=== PATIENT | male | born 1945 | race Caucasian/White ===

== ENCOUNTER 2016-07-18 05:21 | Inpatient (IN) | payer BC, OTHER ==
[~2016-07-18] VITALS: Ht 177.8 cm; Wt 121.6 kg
[~2016-07-18 05:21] MED LIST: ALEVE220 MG PO; ALLERGY RELIE15.8 ML BOTH NARES; ASPIR 8181 M1 PO; DALMANE15 MG PO; DIOVAN160 MG PO; DULCOLAX5 MG PO; FLOMAX0.4 MG PO; GLUCOPHAGE500 MG PO; INVOKANA300 MG PO; K-DUR20 MEQ PO; LASIX40 MG PO; LOPRESSOR100 M1 PO; METOLAZONE5 MG PO; MEVACOR10 M1 PO; NORVASC5 MG PO; TRICOR145 MG PO; VICTOZA 2-0.6 MG/0.1 SC
[2016-07-18 06:12] VITALS: BP 162/93
[2016-07-18 06:45] LABS: POINT-OF-CARE METER ID UU14174212
[2016-07-18 10:00] LABS: POINT-OF-CARE METER ID UU13113675
[2016-07-18 12:00] VITALS: BP 130/58
[2016-07-18 15:05] VITALS: BP 123/64
[2016-07-18 16:38] LABS: POINT-OF-CARE METER ID UU14149397
[2016-07-18 19:44] VITALS: BP 114/59
[2016-07-18 23:21] VITALS: BP 107/68
[2016-07-19 03:41] VITALS: BP 113/59
[2016-07-19 05:11] LABS: HEMATOCRIT 55.5 % (38.0-50.0)
[2016-07-19 05:22] LABS: CHLORIDE 103 mEq/L (99-109)
[2016-07-19 05:23] LABS: POTASSIUM 4.8 mEq/L (3.7-5.4); SODIUM 140 mEq/L (136-147)
[2016-07-19 05:24] LABS: GLUCOSE 143 mg/dL (70-99)
[2016-07-19 05:26] LABS: ANION GAP 9 MEQ/L (2-14)
[2016-07-19 05:28] LABS: GFR ESTIMATE (CALCULATED) > 59 mL/min/
[2016-07-19 05:29] LABS: UREA NITROGEN (BUN) 24 mg/dL (9-23)
[2016-07-19 07:45] LABS: GLUCOSE 153 mg/dL (70-99)
[2016-07-19 07:56] VITALS: BP 126/68
[2016-07-19 11:56] VITALS: BP 118/67
[2016-07-19 12:00] LABS: POINT-OF-CARE METER ID UU14149397
[2016-07-19 15:24] VITALS: BP 101/55
[2016-07-19 16:54] LABS: POINT-OF-CARE METER ID UU14149397
[2016-07-19 19:43] VITALS: BP 98/55
[2016-07-19 23:55] VITALS: BP 130/74
[2016-07-20 04:06] VITALS: BP 98/54
[2016-07-20 05:35] LABS: MCV 92.7 FL (86-99)
[2016-07-20 07:48] VITALS: BP 138/74
[2016-07-20 17:18] VITALS: BP 125/70
[2016-07-20 21:52] LABS: POINT-OF-CARE METER ID UU14188577
[2016-07-20 23:23] VITALS: BP 118/61
[2016-07-21 08:00] VITALS: BP 102/68
[2016-07-21 17:02] VITALS: BP 108/58
[2016-07-21] MEDS ORDERED: HYDROCODON-ACE1 EAC7 PO (17:32)
[2016-07-21] MEDS ORDERED: XARELTO10 MG PO (17:33)
[2016-07-22 00:32] VITALS: BP 94/59
[2016-07-22 08:18] VITALS: BP 108/62
[2016-07-22 15:54] VITALS: BP 99/60
[2016-07-22 20:40] VITALS: BP 91/54
[2016-07-22 23:28] VITALS: BP 104/56
[2016-07-23 08:19] VITALS: BP 104/61
[2016-07-23 11:43] LABS: POINT-OF-CARE METER ID UU14188577
[2016-07-23 16:16] VITALS: BP 102/67
[2016-07-23 16:53] LABS: POINT-OF-CARE METER ID UU14188577
[2016-07-23 21:45] VITALS: BP 106/69
[2016-07-23 23:47] VITALS: BP 94/56
[2016-07-24 06:38] LABS: POINT-OF-CARE METER ID UU14149397
[2016-07-24 07:57] VITALS: BP 104/58
[2016-07-24 16:30] VITALS: BP 117/59
[2016-07-24 16:52] LABS: POINT-OF-CARE METER ID UU14149397
[2016-07-24 21:24] LABS: BASE EXCESS 13.2 mEq/L (-3 to +3); CARBOXY HGB 1.8 % (0-5); COMMENTS - BLOOD GASES A+C+; FI02 21 %; METHEMOGLOBIN 1.1 % (0-1.5); PCO2 55 mm Hg (35-45); PO2 50 mm Hg (80-100); SITE RR; pH 7.47 (7.35-7.45)
[2016-07-24 21:52] VITALS: BP 104/60
[2016-07-24 23:22] VITALS: BP 128/58
[2016-07-25 08:21] VITALS: BP 100/61
[2016-07-25 12:05] LABS: POINT-OF-CARE METER ID UU14149397
== END 2016-07-25 13:42 | disposition home health service (06) | DRG 470 ==
LOC: 3EAST 05:21 → 2SOUTH 05:21 → 3EAST 11:50 → 2SOUTH 12:37 → 3EAST 07-25 13:42
PROVIDERS: Internal Medicine Pulmonary Disease; Orthopaedic Surgery
PROC: 0SRB0JZ Replacement of Left Hip Joint with Synthetic Substitute, Open Approach (ICD-10-PCS; principal; 2016-07-18)
DX: M16.12 Unilateral primary osteoarthritis, left hip (principal); I25.10 Atherosclerotic heart disease of native coronary artery without angina pectoris; I25.2 Old myocardial infarction; I10 Essential (primary) hypertension; R09.02 Hypoxemia; D75.1 Secondary polycythemia; G47.33 Obstructive sleep apnea (adult) (pediatric); E87.3 Alkalosis; E11.65 Type 2 diabetes mellitus with hyperglycemia; Z79.84 Long term (current) use of oral hypoglycemic drugs
CPT/HCPCS: 36600; 71010; 71275; 73501; 80048; 82803; 82948; 84999; 85014; 85018; 94760; 94799; 97530 GO; 97530 GP; J0131; J0330; J0690; J1170; J1815; J2250; J2405; J2710; J2765; J3010; J7030; J7050; P9045

== ENCOUNTER 2017-10-31 11:18 | Inpatient (IN) | payer BC, OTHER ==
[~2017-10-31] VITALS: Ht 170.2 cm; Wt 110.7 kg
[~2017-10-31 11:18] MED LIST changes: +GLUCOPHAGE XR,500 MG PO; -GLUCOPHAGE500 MG PO; +HYDROCODON-ACE1 EAC7 PO; +XARELTO10 MG PO
[2017-10-31 11:41] LABS: HEMATOCRIT 55.7 % (38.0-50.0); HEMOGLOBIN 17.1 G/DL (12.5-16.6); MCH 27.2 PG (29.0-34.0); MCHC 30.7 G/DL (30.0-36.0); MCV 88.6 FL (86-99); PLATELET COUNT 114 K/uL (156-360); RBC DIS.WIDTH-SD 55.8 % (39-53); RED BLOOD COUNT 6.29 M/uL (4.00-5.50)
[2017-10-31 11:50] LABS: CHLORIDE 104 mEq/L (99-109); POTASSIUM 4.7 mEq/L (3.7-5.4); SODIUM 141 mEq/L (136-147)
[2017-10-31 11:52] LABS: GLUCOSE 245 mg/dL (70-99)
[2017-10-31 11:53] LABS: APPEARANCE CLOUDY ((CLEAR)); BILIRUBIN NEGATIVE; BLOOD NEGATIVE; COLOR YELLOW ((YELLOW)); GLUCOSE (STRIP) >=500; KETONES NEGATIVE; LEUKOCYTES NEGATIVE; NITRITE NEGATIVE; PROTEIN (STRIP) >=500; UROBILINOGEN 0.2 MG/DL (0.2-1.0)
[2017-10-31 11:55] LABS: CREATININE 0.9 mg/dL (0.6-1.3); GFR ESTIMATE (CALCULATED) > 59 mL/min/ (58.99-99999)
[2017-10-31 11:56] LABS: UREA NITROGEN (BUN) 19 mg/dL (9-23)
[2017-10-31 12:01] LABS: TROP-I INTERPRETATION NEGATIVE; TROPONIN-I 0.02 ng/mL (0.0-0.30)
[2017-10-31 12:10] LABS: RED BLOOD CELLS NONE SEEN /HPF (0-5); WHITE BLOOD CELLS RARE /HPF (0-5)
[2017-10-31 12:13] LABS: BACTERIA 1+ /HPF; EPITHELIAL CELLS NONE SEEN /HPF; MUCUS NONE SEEN /LPF; UCUL ADDED? NO
[2017-10-31 12:14] LABS: AMORPHOUS URATES CRYSTALS 1+
[2017-10-31 14:46] VITALS: BP 137/69
[2017-10-31] MEDS ORDERED: COZAAR50 MG PO (15:45)
[2017-10-31] MEDS ORDERED: ASPIR 8181 M1 PO (15:45)
[2017-10-31 18:58] LABS: TROP-I INTERPRETATION NEGATIVE; TROPONIN-I 0.27 ng/mL (0.0-0.30)
[2017-10-31 19:50] VITALS: BP 138/72
[2017-10-31 23:04] VITALS: BP 138/71
[2017-11-01 01:16] LABS: TROP-I INTERPRETATION NEGATIVE
[2017-11-01 04:00] VITALS: BP 148/68
[2017-11-01 06:18] LABS: ALBUMIN 3.7 G/DL (3.2-4.8); ALKALINE PHOSPHATASE 28 IU/L (3-129); ALT (GPT) 11 IU/L (3-49); AST (GOT) 24 IU/L (2-34); CHLORIDE 98 MEQ/L (99-109); CREATININE 0.9 MG/DL (0.6-1.3); GFR ESTIMATE (CALCULATED) > 59 mL/min/ (58.99-99999); GLUCOSE 129 mg/dL (70-99); HEMATOCRIT 51.6 % (38.0-50.0); HEMOGLOBIN 15.4 G/DL (12.5-16.6); MCHC 29.8 G/DL (30.0-36.0); MCV 90.4 FL (86-99); POTASSIUM 4.8 MEQ/L (3.7-5.4); RBC DIS.WIDTH-CV 17.2 % (11.8-14.6); RED BLOOD COUNT 5.71 M/uL (4.00-5.50); SODIUM 140 MEQ/L (136-147); TOTAL BILIRUBIN 0.7 MG/DL (0.0-1.0); TOTAL PROTEIN 6.5 G/DL (6.4-8.3); UREA NITROGEN (BUN) 21 mg/dL (9-23); WHITE BLOOD COUNT 6.6 K/uL (4.1-10.2)
[2017-11-01 07:19] LABS: PLAT.SUFFICIENCY DECREASED; PLATELET COUNT 128 K/uL (156-360)
[2017-11-01 07:46] VITALS: BP 118/56
[2017-11-01 11:19] VITALS: BP 119/71
[2017-11-01] MEDS ORDERED: TOPROL XL100 MG PO (12:45)
[2017-11-01] MEDS ORDERED: ASPIRIN81 M2 PO (12:47)
[2017-11-01] MEDS ORDERED: GLIPIZIDE XL5 MG PO (12:48)
[2017-11-01 15:41] VITALS: BP 116/61
[2017-11-01 19:30] VITALS: BP 153/80
[2017-11-02] VITALS (14 sets, daily range): BP systolic 94–121; BP diastolic 48–69
[2017-11-02 05:39] LABS: BASOPHIL (%) 0.4 % (0-1); EOSINOPHIL (%) 1.6 % (0-5); EOSINOPHIL COUNT 0.1 K/uL (0-0.3); HEMATOCRIT 52.8 % (38.0-50.0); HEMOGLOBIN 15.6 G/DL (12.5-16.6); IMMATURE GRANULOCYTE (%) 0.2 % (0.0-0.7); LYMPHOCYTE (%) 15.9 % (15-42); LYMPHOCYTE COUNT 0.9 K/uL (1.0-2.8); MCH 26.9 PG (29.0-34.0); MCHC 29.5 G/DL (30.0-36.0); MCV 91.2 FL (86-99); MONOCYTE (%) 9.2 % (3-12); MONOCYTE COUNT 0.5 K/uL (0-0.8); NEUTROPHIL (%) 72.7 % (45-76); NEUTROPHIL COUNT 4.1 K/uL (1.8-6.4); PLATELET COUNT 115 K/uL (156-360); RBC DIS.WIDTH-CV 16.8 % (11.8-14.6); RBC DIS.WIDTH-SD 56.3 % (39-53); RED BLOOD COUNT 5.79 M/uL (4.00-5.50); WHITE BLOOD COUNT 5.7 K/uL (4.1-10.2)
[2017-11-02 06:09] LABS: CREATININE 0.8 MG/DL (0.6-1.3); GFR ESTIMATE (CALCULATED) > 59 mL/min/ (58.99-99999); GLUCOSE 177 mg/dL (70-99); SODIUM 141 MEQ/L (136-147); UREA NITROGEN (BUN) 19 mg/dL (9-23)
[2017-11-02 06:28] LABS: CARBON DIOXIDE (BICARBONATE) > 40.0 MEQ/L (20-31); CHLORIDE 88 MEQ/L (99-109)
[2017-11-02 09:46] LABS: COMMENTS - BLOOD GASES A+C+; DEVICE HHFNC; FI02 80 %; O2 FLOW 30 L/MIN; SITE RR; TOTAL RESP RATE 16 resp/min
[2017-11-02 09:47] LABS: BICARBONATE 56.9 mEq/L (22-26); CARBOXY HGB 1.6 % (0-5); METHEMOGLOBIN 0.9 % (0-1.5); PCO2 121 mm Hg (35-45); PO2 151 mm Hg (80-100)
[2017-11-02 09:48] LABS: BASE EXCESS 21.7 mEq/L (-3 to +3)
[2017-11-02 09:53] LABS: pH 7.28 (7.35-7.45)
[2017-11-02 18:02] LABS: D-DIMER ELISA < 150.00 ng/mLDDU (<230)
[2017-11-03] VITALS (16 sets, daily range): BP systolic 90–129; BP diastolic 52–76
[2017-11-03 05:47] LABS: BASOPHIL (%) 0.2 % (0-1); EOSINOPHIL (%) 0.5 % (0-5); HEMATOCRIT 49.5 % (38.0-50.0); HEMOGLOBIN 14.4 G/DL (12.5-16.6); IMMATURE GRANULOCYTE (%) 0.2 % (0.0-0.7); LYMPHOCYTE (%) 16.8 % (15-42); MCH 27.2 PG (29.0-34.0); MCHC 29.1 G/DL (30.0-36.0); MCV 93.6 FL (86-99); MONOCYTE (%) 10.7 % (3-12); MONOCYTE COUNT 0.6 K/uL (0-0.8); NEUTROPHIL (%) 71.6 % (45-76); NEUTROPHIL COUNT 4.2 K/uL (1.8-6.4); PLATELET COUNT 106 K/uL (156-360); RBC DIS.WIDTH-CV 16.2 % (11.8-14.6); RBC DIS.WIDTH-SD 55.4 % (39-53); RED BLOOD COUNT 5.29 M/uL (4.00-5.50); WHITE BLOOD COUNT 5.9 K/uL (4.1-10.2)
[2017-11-03 06:19] LABS: CHLORIDE 90 MEQ/L (99-109); GFR ESTIMATE (CALCULATED) > 59 mL/min/ (58.99-99999); GLUCOSE 172 mg/dL (70-99); POTASSIUM 4.8 MEQ/L (3.7-5.4); SODIUM 140 MEQ/L (136-147)
[2017-11-03 06:29] LABS: UREA NITROGEN (BUN) 35 mg/dL (9-23)
[2017-11-03 07:01] LABS: CARBON DIOXIDE (BICARBONATE) > 40.0 MEQ/L (20-31)
[2017-11-03 10:53] LABS: COMMENTS - BLOOD GASES A+C+; DEVICE HHFNC; FI02 40 %; O2 FLOW 25 L/MIN; SITE RR; TOTAL RESP RATE 18 resp/min
[2017-11-03 10:54] LABS: PCO2 99 mm Hg (35-45); PO2 82 mm Hg (80-100); pH 7.35 (7.35-7.45)
[2017-11-03 10:55] LABS: BASE EXCESS 22.3 mEq/L (-3 to +3); BICARBONATE 54.7 mEq/L (22-26); CARBOXY HGB 1.9 % (0-5); METHEMOGLOBIN 0.8 % (0-1.5); O2 SATURATION (CALCULATED) 94.1 % (95-99)
[2017-11-04] VITALS (12 sets, daily range): BP systolic 117–147; BP diastolic 59–81
[2017-11-04 05:47] LABS: BASOPHIL (%) 0.2 % (0-1); EOSINOPHIL (%) 1.2 % (0-5); EOSINOPHIL COUNT 0.1 K/uL (0-0.3); HEMATOCRIT 47.4 % (38.0-50.0); HEMOGLOBIN 14.2 G/DL (12.5-16.6); IMMATURE GRANULOCYTE (%) 0.4 % (0.0-0.7); MCH 27.2 PG (29.0-34.0); MCV 90.8 FL (86-99); MONOCYTE (%) 11.7 % (3-12); MONOCYTE COUNT 0.6 K/uL (0-0.8); NEUTROPHIL (%) 67.5 % (45-76); NEUTROPHIL COUNT 3.5 K/uL (1.8-6.4); PLATELET COUNT 102 K/uL (156-360); RBC DIS.WIDTH-CV 16.1 % (11.8-14.6); RBC DIS.WIDTH-SD 53.6 % (39-53); RED BLOOD COUNT 5.22 M/uL (4.00-5.50); WHITE BLOOD COUNT 5.2 K/uL (4.1-10.2)
[2017-11-04 06:28] LABS: CHLORIDE 88 MEQ/L (99-109); CREATININE 0.9 MG/DL (0.6-1.3); GFR ESTIMATE (CALCULATED) > 59 mL/min/ (58.99-99999); GLUCOSE 182 mg/dL (70-99); MAGNESIUM 1.7 mg/dl (1.3-2.7); POTASSIUM 4.3 MEQ/L (3.7-5.4); SODIUM 142 MEQ/L (136-147); UREA NITROGEN (BUN) 41 mg/dL (9-23)
[2017-11-04 06:30] LABS: CARBON DIOXIDE (BICARBONATE) > 40.0 MEQ/L (20-31)
[2017-11-04 09:56] LABS: COMMENTS - BLOOD GASES A+C+; DEVICE RA; PCO2 66 mm Hg (35-45); PO2 49 mm Hg (80-100); SITE LR; TOTAL RESP RATE 12 resp/min; pH 7.46 (7.35-7.45)
[2017-11-04 09:57] LABS: BASE EXCESS 18.7 mEq/L (-3 to +3); BICARBONATE 46.9 mEq/L (22-26); CARBOXY HGB 2.4 % (0-5); METHEMOGLOBIN 0.8 % (0-1.5); O2 SATURATION (CALCULATED) 85.9 % (95-99)
[2017-11-04 10:42] LABS: THYROTROPIN (TSH) 1.3 MIU/L (0.4-5.5)
[2017-11-05] VITALS (7 sets, daily range): BP systolic 112–136; BP diastolic 63–76
[2017-11-05 06:18] LABS: HEMATOCRIT 51.1 % (38.0-50.0); HEMOGLOBIN 15.7 G/DL (12.5-16.6); MCH 27.3 PG (29.0-34.0); MCHC 30.7 G/DL (30.0-36.0); MCV 88.9 FL (86-99); RBC DIS.WIDTH-SD 52.2 % (39-53); RED BLOOD COUNT 5.75 M/uL (4.00-5.50); WHITE BLOOD COUNT 5.3 K/uL (4.1-10.2)
[2017-11-05 06:34] LABS: PLAT.SUFFICIENCY ADEQUATE; PLATELET CLUMPS PRESENT - PLATELET COUNT APPEARS ADEQUATE
[2017-11-05 06:35] LABS: PLATELET COUNT UNABLE TO REPORT K/uL (156-360)
[2017-11-05 06:36] LABS: CHLORIDE 86 MEQ/L (99-109); GFR ESTIMATE (CALCULATED) > 59 mL/min/ (58.99-99999); GLUCOSE 209 mg/dL (70-99); MAGNESIUM 1.8 mg/dl (1.3-2.7); POTASSIUM 4.2 MEQ/L (3.7-5.4); SODIUM 137 MEQ/L (136-147); UREA NITROGEN (BUN) 41 mg/dL (9-23)
[2017-11-05 06:47] LABS: CARBON DIOXIDE (BICARBONATE) > 40.0 MEQ/L (20-31)
[2017-11-06 03:42] VITALS: BP 98/52
[2017-11-06 06:55] LABS: CHLORIDE 86 MEQ/L (99-109); GFR ESTIMATE (CALCULATED) 45 mL/min/ (58.99-99999); GLUCOSE 231 mg/dL (70-99); POTASSIUM 4.5 MEQ/L (3.7-5.4); SODIUM 135 MEQ/L (136-147); UREA NITROGEN (BUN) 51 mg/dL (9-23)
[2017-11-06 06:57] LABS: CREATININE 1.6 MG/DL (0.6-1.3)
[2017-11-06 07:05] LABS: HEMATOCRIT 49.5 % (38.0-50.0); HEMOGLOBIN 15.6 G/DL (12.5-16.6); MCH 27.5 PG (29.0-34.0); MCHC 31.5 G/DL (30.0-36.0); MCV 87.1 FL (86-99); RBC DIS.WIDTH-CV 16.2 % (11.8-14.6); RED BLOOD COUNT 5.68 M/uL (4.00-5.50); WHITE BLOOD COUNT 6.5 K/uL (4.1-10.2)
[2017-11-06 07:13] VITALS: BP 112/51
[2017-11-06 07:17] LABS: PLAT.SUFFICIENCY DECREASED
[2017-11-06 07:25] LABS: PLATELET COUNT 144 K/uL (156-360)
[2017-11-06 12:11] VITALS: BP 115/65
[2017-11-06 15:08] VITALS: BP 102/59
[2017-11-06 20:00] VITALS: BP 132/62
[2017-11-06 23:47] VITALS: BP 116/67
[2017-11-07 03:47] VITALS: BP 110/61
[2017-11-07 06:23] LABS: CHLORIDE 88 MEQ/L (99-109); CREATININE 1.4 MG/DL (0.6-1.3); GFR ESTIMATE (CALCULATED) 53 mL/min/ (58.99-99999); GLUCOSE 206 mg/dL (70-99); POTASSIUM 4.1 MEQ/L (3.7-5.4); SODIUM 135 MEQ/L (136-147); UREA NITROGEN (BUN) 55 mg/dL (9-23)
[2017-11-07 07:00] VITALS: BP 117/66
[2017-11-07] MEDS ORDERED: LOPRESSOR25 MG PO (11:32)
[2017-11-07] MEDS ORDERED: SPIRONOLACTONE25 MG PO (11:32)
[2017-11-07] MEDS ORDERED: FUROSEMIDE40 MG PO (11:32)
[2017-11-07 11:33] VITALS: BP 128/64
== END 2017-11-07 13:54 | disposition home health service (06) | DRG 189 ==
LOC: EME 11:18 → 4EAST 13:12 → EDOF 13:12 → ENRESERV 13:13 → 4EAST 14:26 → ENRESERV 11-01 21:22 → 4EAST 11-02 09:58 → ENRESERV 11-02 10:08 → 4EAST 11-02 10:18 → 4WEST 11-02 10:19 → CANRESERV 11-04 11:05 → ENRESERV 11-04 11:05 → 5SOUTH 11-04 13:34
PROVIDERS: Emergency Medicine; Hospitalist; Internal Medicine; Internal Medicine Critical Care Medicine
DX: J96.01 Acute respiratory failure with hypoxia (principal); I50.33 Acute on chronic diastolic (congestive) heart failure; G93.40 Encephalopathy, unspecified; N17.9 Acute kidney failure, unspecified; E87.2 Acidosis; Z68.41 Body mass index [BMI] 40.0-44.9, adult; J44.1 Chronic obstructive pulmonary disease with (acute) exacerbation; E66.2 Morbid (severe) obesity with alveolar hypoventilation; D75.1 Secondary polycythemia; G47.33 Obstructive sleep apnea (adult) (pediatric); I89.0 Lymphedema, not elsewhere classified; I25.10 Atherosclerotic heart disease of native coronary artery without angina pectoris; I35.0 Nonrheumatic aortic (valve) stenosis; I25.2 Old myocardial infarction; E11.9 Type 2 diabetes mellitus without complications; Z96.642 Presence of left artificial hip joint; E78.5 Hyperlipidemia, unspecified; Z79.4 Long term (current) use of insulin; J96.02 Acute respiratory failure with hypercapnia; E66.01 Morbid (severe) obesity due to excess calories; I11.0 Hypertensive heart disease with heart failure; I27.20 Pulmonary hypertension, unspecified
CPT/HCPCS: 36600; 71045; 80048; 80053; 81003; 82533 91; 82550; 82664 90; 82948; 83605; 83735; 83880; 84100; 84145 90; 84238 90; 84402 90; 84403; 84443; 84484; 85025; 85027; 85379; 86141; 86618; 86664; 86665; 87641; 93005; 93306; 93970; 94002; 94660; 94760; 94799; 99195; 99281; 99285; J1650; J1815; J1940; J2405